=== PATIENT | female | born 2000 | race African-American/Black ===

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

== ENCOUNTER 2022-01-29 13:39 | Day surgery (SDC) | payer OTHER ==
[2022-01-29 13:58] VITALS: BMI 29.5
[2022-01-29] MEDS ORDERED: Bupivacaine PF 0.5% 30 ML VIAL ONE (14:25)
[2022-01-29] MEDS ORDERED: EPINEPHrine 1 MG/ML AMP ONE (14:25)
[2022-01-29 14:30] LABS: Hemoglobin 10.7 g/dL (12.0-15.5); Mean Corpuscular Hemoglobin 26.3 pg (27.0-33.0); Mean Corpuscular Volume 82.1 fl (81.6-98.3); Mean Platelet Volume 10.2 fl (7.4-10.4); Platelet Count 232 10x3/uL (150-450); RBC Distribution Width 13.8 % (11.5-14.5); Red Blood Cell (RBC) Count 4.07 10x6/uL (3.90-5.03); White Blood Cell (WBC) Count 5.5 10x3/uL (3.5-10.5)
[2022-01-29] MEDS ORDERED: CEFAZOLIN 1 GM VIAL ONE (14:38)
[2022-01-29 14:48] LABS: BHCG - Serum Negative (NEGATIVE); Pregs Control Background? CLEAR/WHITE (CLR/WHITE); Pregs Control Bar Appear? YES (CONTROL BAR)
[2022-01-29] MEDS ORDERED: PROPOFOL 20 ML ONE (15:01)
[2022-01-29] MEDS ORDERED: Fentanyl 100 MCG/2 ML VIAL ONE ×2 (15:01→17:48)
[2022-01-29] MEDS ORDERED: Ondansetron PF 4 MG/2 ML Vial ONE (15:04)
[2022-01-29] MEDS ORDERED: Dexamethasone 4 mg/ml Vial ONE (15:04)
[2022-01-29] MEDS ORDERED: Lidocaine 1% PF 5 ML VIAL ONE (15:04)
[2022-01-29] MEDS ORDERED: Rocuronium Bromide 10 MG/ML (10ML VIAL) ONE (15:04)
[2022-01-29] MEDS ORDERED: Midazolam HCl 2 mg/2 ml Vial ONE (16:02)
[2022-01-29] MEDS ORDERED: SUGAMMADEX SODIUM 200 MG/2 ML VIAL ONE (16:06)
[2022-01-29] MEDS ORDERED: ePHEDrine Sulfate 50 MG/10 ML VIAL ONE (16:40)
[2022-01-29] MEDS ORDERED: Ketorolac Tromethamine 30 MG/ML VIAL ONE (17:12)
[2022-01-29] MEDS ORDERED: Glycopyrrolate 0.2 MG/ML 5 ML SYRINGE ONE (17:12)
[2022-01-29] MEDS ORDERED: Meperidine HCl/PF 25 MG/ML VIAL ONE (17:37)
== END 2022-01-29 18:40 | disposition home or self-care (01) ==
LOC: CSHSDC 13:39
PROVIDERS: ATTEND Obstetrics & Gynecology
PROC: 0UPD4HZ Removal of Contraceptive Device from Uterus and Cervix, Percutaneous Endoscopic Approach (ICD-10-PCS; principal; 2022-01-29)
DX: Z30.432 Encounter for removal of intrauterine contraceptive device (principal); F17.200 Nicotine dependence, unspecified, uncomplicated; Z88.1 Allergy status to other antibiotic agents
CPT/HCPCS: 36415; 84703; 85027; 86850; 86900; 86901; J0171; J0690; J1100; J1885; J2175; J2250; J2405; J2704; J3010; S0020

== ENCOUNTER 2023-01-20 21:44 | Emergency (ER) | payer OTHER, SELFPAY | END 2023-01-20 23:42 | disposition home or self-care (01) | LOC: CSHERS 21:44 | DX: R20.2 Paresthesia of skin (principal) | CPT/HCPCS: 99283 ==